=== PATIENT | male | born 2000 | race Caucasian/White ===

== ENCOUNTER 2019-10-26 13:08 | Emergency (ER) | payer BC, OTHER ==
[~2019-10-26] VITALS: Ht 182.8 cm; Wt 90.1 kg
--- NOTE | 2019-10-26 13:48 | ED Lower Extremity ---
General Chief Complaint: Lower Extremity Stated Complaint: R KNEE PAIN Nursing Triage Note: C/O R KNEE PAIN HAS HAD KNEE SURG. IN PAST. IS [employer]. OTC PAIN MEDS NOT HELPING. INJURED KNEE 2 WEEKS AGO. STEPPED IN HOLE AND TWISTED KNEE Nursing Sepsis Screen: No Definite Risk Source: patient Exam Limitations: no limitations History of Present Illness Date Seen by Provider: Oct 26, 2019 Time Seen by Provider: 13:40 Initial Comments 19 year old male that presents to the emergency department with right knee pain. Patient has a history of having an anterior cruciate ligament, MCL surgery on this knee previously, then a knee scope for mensical tear. Patient reports that 2 weeks ago he stepped in a hole and the knee was twisted. Patient has been taking some Tylenol that his dad gave him that has not been helping the pain. Onset: other (2 weeks ago) Pain/Injury Location: right knee Method of Injury: twisted Modifying Factors: Improves With Immobilization; Worse With Movement; Improves With Rest Allergies and Home Medications Allergies Coded Allergies: No Known Drug Allergies (Unverified , 10/26/19) Home Medications No Active Prescriptions or Reported Meds Patient Home Medication List Home Medication List Reviewed: Yes Review of Systems Constitutional: no symptoms reported, see HPI EENTM: see HPI, no symptoms reported Respiratory: no symptoms reported, see HPI Cardiovascular: no symptoms reported, see HPI Gastrointestinal: no symptoms reported, see HPI Genitourinary: no symptoms reported, see HPI Musculoskeletal: see HPI, joint pain Skin: no symptoms reported, see HPI Psychiatric/Neurological: No Symptoms Reported, See HPI All Other Systems Reviewed Negative Unless Noted: Yes Past [id number]-[id number] Hx Past Med/Social Hx: Reviewed Nursing Past Med/Soc Hx Patient Social History Alcohol Use: Denies Use Recreational Drug Use: No Smoking Status: Never a Smoker Recent Foreign Travel: No Contact w/Someone Who Travel: No Recent Infectious Disease Expo: No Past Medical History Surgeries: Yes Orthopedic Respiratory: No Cardiac: No Neurological: No Genitourinary: No Gastrointestinal: No Musculoskeletal: No HEENT: No Cancer: No Psychosocial: No Physical Exam Vital Signs Vital Signs - First Documented 10/26/19 13:24 Temp 36.4 Pulse 82 Resp 18 B/P (MAP) 126/76 (93) Pulse Ox 97 Capillary Refill : Less Than 3 Seconds Height, Weight, BMI Height: '" Weight: lbs. oz. kg; 26.00 BMI Method: General Appearance: WD/WN, no apparent distress HEENT: PERRL/EOMI, normal ENT inspection, TMs normal, pharynx normal Neck: non-tender, full range of motion, supple, normal inspection Cardiovascular: regular rate, rhythm, no edema, no gallop, no JVD, no murmur Respiratory: chest non-tender, lungs clear, normal breath sounds, no respiratory distress, no accessory muscle use Gastrointestinal: normal bowel sounds, non tender, soft, no organomegaly, no pulsatile mass Back: normal inspection, no CVA tenderness, no vertebral tenderness Knees: bilateral knee non-tender, bilateral knee normal inspection, bilateral knee normal range of motion, bilateral knee no evidence of injury, bilateral knee bone tenderness, bilateral knee deformity, bilateral knee ecchymosis; right knee joint effusion (small); bilateral knee nodules, bilateral knee nodules; right knee pain, right knee soft tissue tenderness; bilateral knee swelling; right knee other (+Cady, Neg Leo and Ant Drawer) 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, no motor/sensory deficits, alert, normal mood/affect, oriented x 3 Skin: normal color, warm/dry Lymphatic: no adenopathy Progress/Results/Core Measures Results/Orders Vital Signs/I&O 10/26/19 13:24 Temp 36.4 Pulse 82 Resp 18 B/P (MAP) 126/76 (93) Pulse Ox 97 Blood Pressure Mean: 93 POS Departure Impression Primary Impression: Acute meniscal tear of right knee Qualified Codes: S83.206A - Unspecified tear of unspecified meniscus, current injury, right knee, initial encounter Additional Impression: Right knee pain Qualified Codes: M25.561 - Pain in right knee Disposition: 01 HOME, SELF-CARE Condition: Stable Departure-Patient Inst. Decision time for Depature: 13:55 Referrals: NO,LOCAL PHYSICIAN (PCP) Primary Care Physician Patient Instructions: Meniscal Tear (DC) Add. Discharge Instructions: Use the Isaias wrap when awake. Use crutches as needed. You may use Tylenol 650 mg alternating with ibuprofen 600 mg every 4 hours. Follow up with your orthopedic surgeon of choice. Return to the emergency department for new, urgent health care needs. All discharge instructions reviewed with patient and/or family. Voiced understanding. Scripts No Active Prescriptions or Reported Meds Copy Copies To 1: CLAUDE SMITH MD, AMY ARNP Oct 26, 2019 13:48 POS
[2019-10-26 14:19] VITALS: BP 126/76
== END 2019-10-26 14:19 | disposition home or self-care (01) ==
LOC: EDUNIT# 13:08 → ER 13:09
DX: S83.206A Unspecified tear of unspecified meniscus, current injury, right knee, initial encounter (principal); W17.2XXA Fall into hole, initial encounter
CPT/HCPCS: 99283